=== PATIENT | male | born 1955 | race Caucasian/White ===

== ENCOUNTER 2025-02-22 07:29 | Outpatient (CLI) | payer MEDICARE ==
[2025-02-22 08:42] LABS: ALT (SGPT) 22 U/L (Less than 45); AST (SGOT) 23 U/L (11-34); Albumin 4.1 g/dL (3.1-4.5); Alkaline Phosphatase 70 U/L (40-110); Anion Gap 15 mmol/L (10-20); BUN (Urea Nitrogen) 25 mg/dL (8.4-25.7); Bilirubin, Total 0.6 mg/dL (0.3-1.2); Calc. Creatinine Clearance 0 mL/min (70-130); Calcium 9.3 mg/dL (7.8-10.44); Carbon Dioxide 25 mmol/L (23-31); Cardiac Risk 4.2 (Less than 4.5); Chloride 102 mmol/L (98-107); Cholesterol 135 mg/dl (< 200 Desired); Globulin 2.7 g/dL (2.4-3.5); Glucose 113 mg/dL (80-115); HDL Cholesterol 32 mg/dL (>60 Neg Risk); LDL Cholesterol, Calculated 63 mg/dL; Potassium 3.7 mmol/L (3.5-5.1); Sodium 138 mmol/L (136-145); Triglycerides 199 mg/dL (Less than 150)
== END 2025-02-22 07:30 | disposition home or self-care (01) ==
LOC: MADLAB 07:29
PROVIDERS: ATTEND Internal Medicine Cardiovascular Disease
DX: I25.10 Atherosclerotic heart disease of native coronary artery without angina pectoris (principal)
CPT/HCPCS: 36415; 80053; 80061